=== PATIENT | male | born 1955 | race Caucasian/White ===

== ENCOUNTER 2022-12-30 11:54 | Observation (INO) | payer MEDICARE, OTHER ==
[~2022-12-30] VITALS: Ht 177.8 cm; Wt 112.7 kg
[~2022-12-30 11:54] MED LIST: ASPI81CH PO; ATOR40TA PO; BUPR150ER PO; ENDOCET 7.5-321 EACH PO; GLIP5 PO; GLUCOSE4 GM PO; HYDR1TAB94 PO; INSDET100; JARDIANCE25 MG PO; LEVSOD150 PO; LOSARTAN POTASS25 M2 PO; METF500 PO; Mupirocin22 GM; NEURONTIN300 MG PO; PARO20 PO; PRAZ2 PO; Refresh Plus1 EACH OP; SYNTHROID150 MC1 PO; TAMSULOSIN HCL0.4 M1 PO; TANZEUM30 MG/0.5; TRAZ100 PO
[2022-12-30 12:31] LABS: Base Excess Venous 2.1 mmol/L; PCO2 Venous 50.1 mmHg (38-42); pH Blood Venous 7.35 (7.34-7.37)
[2022-12-30] MEDS ORDERED: TAMS.4ER PO (12:35)
[2022-12-30 12:36] LABS: BASOPHILS ABSOLUTE AUTO 0.06 K/mm3 (0.00-0.23); BASOPHILS PERCENT AUTO 1 % (0-2); EOSINOPHILS ABSOLUTE AUTO 0.23 K/mm3 (0.00-0.68); EOSINOPHILS PERCENT AUTO 5 % (0-6); Hematocrit 44.1 % (37.0-53.0); Hemoglobin 14.9 g/dL (13.5-17.5); IMMATURE GRAN ABSOLUTE AUTO 0.01 K/mm3 (0.00-0.10); IMMATURE GRAN PERCENT AUTO 0 % (0-1); LYMPHOCYTES ABSOLUTE AUTO 1.68 K/mm3 (0.84-5.20); LYMPHOCYTES PERCENT AUTO 37 % (21-46); MONOCYTES ABSOLUTE AUTO 0.27 K/mm3 (0.16-1.47); MONOCYTES PERCENT AUTO 6 % (4-13); Mean Corpuscular HGB 29.3 pg (26.0-34.0); Mean Corpuscular HGB Conc 33.8 g/dL (31.5-36.5); Mean Corpuscular Volume 87 fL (80-100); Mean Platelet Volume 10.7 fL (9.1-12.4); NEUTROPHILS ABSOLUTE AUTO 2.34 K/mm3 (1.96-9.15); NEUTROPHILS PERCENT AUTO 51 % (41-73); Platelet Count 137 K/mm3 (150-400); RDW Coefficient Variation 14.6 % (11.7-14.2); RDW Standard Deviation 46.5 fL (35.1-46.3); Red Blood Cell Count 5.08 M/mm3 (4.30-5.90); White Blood Cell Count 4.59 K/mm3 (4.00-11.30)
[2022-12-30] MEDS ORDERED: NEURONTIN300 MG PO (12:36)
[2022-12-30] MEDS ORDERED: Norco 5-325 Ta1 EACH PO (12:36)
[2022-12-30] MEDS ORDERED: JARDIANCE25 MG PO (12:36)
[2022-12-30] MEDS ORDERED: DIAZEPAM5 M2 PO (12:36)
[2022-12-30] MEDS ORDERED: ATOR10 PO (12:37)
[2022-12-30] MEDS ORDERED: EUTHYROX175 MCG PO (12:38)
[2022-12-30] MEDS ORDERED: METF500 PO (12:38)
[2022-12-30] MEDS ORDERED: BENADRYL25 MG PO (12:38)
[2022-12-30] MEDS ORDERED: ALOGLIPTIN25 M1 (12:38)
[2022-12-30] MEDS ORDERED: Amitriptyline H10 MG PO (12:39)
[2022-12-30] MEDS ORDERED: NOVOLOG100 UNIT/2 (12:40)
[2022-12-30 12:53] LABS: Magnesium, Blood 2.1 mg/dL (1.6-2.4)
[2022-12-30 12:54] LABS: Bilirubin, Total 0.7 mg/dL (0.1-1.0); Bun/Creatinine Ratio 9.7 (12.0-20.0); Calcium, Blood 9.3 mg/dL (8.5-10.1); Creatinine, Blood 1.24 mg/dL (0.60-1.20); Globulin, Blood 4.1 g/dL (2.2-4.0); Total Protein, Blood 8.1 g/dL (6.4-8.2)
[2022-12-30 17:54] VITALS: BP 122/74
[2022-12-30 20:55] VITALS: BP 119/75
[2022-12-31 05:10] LABS: BASOPHILS ABSOLUTE AUTO 0.08 K/mm3 (0.00-0.23); BASOPHILS PERCENT AUTO 1 % (0-2); EOSINOPHILS ABSOLUTE AUTO 0.27 K/mm3 (0.00-0.68); EOSINOPHILS PERCENT AUTO 5 % (0-6); Hematocrit 41.1 % (37.0-53.0); Hemoglobin 14.2 g/dL (13.5-17.5); IMMATURE GRAN ABSOLUTE AUTO 0.01 K/mm3 (0.00-0.10); IMMATURE GRAN PERCENT AUTO 0 % (0-1); LYMPHOCYTES ABSOLUTE AUTO 1.81 K/mm3 (0.84-5.20); LYMPHOCYTES PERCENT AUTO 33 % (21-46); MONOCYTES ABSOLUTE AUTO 0.29 K/mm3 (0.16-1.47); MONOCYTES PERCENT AUTO 5 % (4-13); Mean Corpuscular HGB 29.6 pg (26.0-34.0); Mean Corpuscular HGB Conc 34.5 g/dL (31.5-36.5); Mean Corpuscular Volume 86 fL (80-100); Mean Platelet Volume 10.7 fL (9.1-12.4); NEUTROPHILS ABSOLUTE AUTO 3.07 K/mm3 (1.96-9.15); NEUTROPHILS PERCENT AUTO 56 % (41-73); Platelet Count 164 K/mm3 (150-400); RDW Coefficient Variation 14.6 % (11.7-14.2); RDW Standard Deviation 45.1 fL (35.1-46.3); White Blood Cell Count 5.53 K/mm3 (4.00-11.30)
[2022-12-31 05:57] LABS: Bun/Creatinine Ratio 12.6 (12.0-20.0); Calcium, Blood 9.7 mg/dL (8.5-10.1); Creatinine, Blood 1.11 mg/dL (0.60-1.20); Potassium, Blood 3.1 mmol/L (3.5-5.5)
[2022-12-31 06:05] VITALS: BP 100/69
[2022-12-31 07:32] VITALS: BP 105/67
[2022-12-31 07:56] LABS: Free Thyroxine 0.31 ng/dL (0.70-1.60); Triiodothyronine, Free 0.73 pg/mL (2.18-3.98)
[2022-12-31 15:37] VITALS: BP 104/65
[2022-12-31] MEDS ORDERED: JARDIANCE25 MG PO (17:02)
[2022-12-31] MEDS ORDERED: FURO20 PO (17:03)
[2022-12-31] MEDS ORDERED: POTCHL20ER PO (17:03)
[2022-12-31] MEDS ORDERED: HUMULIN N100 UNIT/6 SC (17:07)
== END 2022-12-31 18:15 | disposition home or self-care (01) ==
LOC: ER 11:54 → MEDS 11:55
PROVIDERS: Student in an Organized Health Care Education/Training Program; ADMIT Internal Medicine
DX: J96.01 Acute respiratory failure with hypoxia (principal); I51.89 Other ill-defined heart diseases; E11.65 Type 2 diabetes mellitus with hyperglycemia; I10 Essential (primary) hypertension; I25.10 Atherosclerotic heart disease of native coronary artery without angina pectoris; E87.1 Hypo-osmolality and hyponatremia; N40.0 Benign prostatic hyperplasia without lower urinary tract symptoms; E03.9 Hypothyroidism, unspecified; E11.40 Type 2 diabetes mellitus with diabetic neuropathy, unspecified; E66.9 Obesity, unspecified; Z79.4 Long term (current) use of insulin; Z79.890 Hormone replacement therapy; Z79.899 Other long term (current) drug therapy
CPT/HCPCS: 36415; 71260; 80048; 80053; 82803; 82947; 83735; 83880; 84145; 84439; 84443; 84481; 84484; 85025; 93005; 93010; 93306; 94760; 94761; 96372; 96376; 99285-25; A9270; G0378; J1650; J1815; J1940; J7030; Q9967

== ENCOUNTER 2023-10-31 17:23 | Emergency (ER) | payer MEDICARE, OTHER ==
[~2023-10-31] VITALS: Ht 177.8 cm; Wt 104.3 kg
[~2023-10-31 17:23] MED LIST changes: +ALOGLIPTIN25 M1; +ATOR10 PO; +Amitriptyline H10 MG PO; +BENADRYL25 MG PO; +DIAZEPAM5 M2 PO; +EUTHYROX175 MCG PO; +FURO20 PO; +HUMULIN N100 UNIT/6 SC; +NOVOLOG100 UNIT/2; +Norco 5-325 Ta1 EACH PO; +POTCHL20ER PO; +TAMS.4ER PO
[2023-10-31 17:30] VITALS: BP 144/75
[2023-10-31 17:57] LABS: BASOPHILS ABSOLUTE AUTO 0.06 K/mm3 (0.00-0.23); BASOPHILS PERCENT AUTO 1 % (0-2); EOSINOPHILS ABSOLUTE AUTO 0.17 K/mm3 (0.00-0.68); EOSINOPHILS PERCENT AUTO 3 % (0-6); Hematocrit 42.7 % (37.0-53.0); Hemoglobin 13.7 g/dL (13.5-17.5); IMMATURE GRAN ABSOLUTE AUTO 0.01 K/mm3 (0.00-0.10); IMMATURE GRAN PERCENT AUTO 0 % (0-1); LYMPHOCYTES ABSOLUTE AUTO 2.17 K/mm3 (0.84-5.20); LYMPHOCYTES PERCENT AUTO 33 % (21-46); MONOCYTES ABSOLUTE AUTO 0.44 K/mm3 (0.16-1.47); MONOCYTES PERCENT AUTO 7 % (4-13); Mean Corpuscular HGB 29.5 pg (26.0-34.0); Mean Corpuscular HGB Conc 32.1 g/dL (31.5-36.5); Mean Corpuscular Volume 92 fL (80-100); Mean Platelet Volume 9.6 fL (9.1-12.4); NEUTROPHILS ABSOLUTE AUTO 3.79 K/mm3 (1.96-9.15); NEUTROPHILS PERCENT AUTO 57 % (41-73); Platelet Count 204 K/mm3 (150-400); RDW Coefficient Variation 13.6 % (11.7-14.2); RDW Standard Deviation 45.9 fL (35.1-46.3); Red Blood Cell Count 4.65 M/mm3 (4.30-5.90); White Blood Cell Count 6.64 K/mm3 (4.00-11.30)
[2023-10-31 18:09] LABS: Albumin, Blood 3.7 g/dL (3.4-5.0); Bilirubin, Total 0.6 mg/dL (0.1-1.0); Bun/Creatinine Ratio 12.9 (12.0-20.0); Calcium, Blood 8.9 mg/dL (8.5-10.1); Creatinine, Blood 0.7 mg/dL (0.60-1.20); Globulin, Blood 3.6 g/dL (2.2-4.0); Potassium, Blood 3.5 mmol/L (3.5-5.5); Total Protein, Blood 7.3 g/dL (6.4-8.2)
[2023-10-31] MEDS ORDERED: Furosemide 10 MG/ML 4ML Vial IV ONE (18:50)
[2023-10-31] MEDS ORDERED: Potassium Chloride 10 Meq Tablet SA PO ONE (18:50)
[2023-10-31 19:16] LABS: Bicarbonate Venous 27.5 mmol/L (24.0-30.0); PCO2 Venous 47.5 mmHg (38-42); pH Blood Venous 7.41 (7.34-7.37)
[2023-10-31] MEDS ORDERED: FURO20 PO ×2 (19:34→19:37)
== END 2023-10-31 20:05 | disposition home or self-care (01) ==
LOC: ER 17:23
PROVIDERS: Student in an Organized Health Care Education/Training Program
DX: I11.0 Hypertensive heart disease with heart failure (principal); I50.9 Heart failure, unspecified; J81.1 Chronic pulmonary edema; E11.9 Type 2 diabetes mellitus without complications; E03.9 Hypothyroidism, unspecified; I25.10 Atherosclerotic heart disease of native coronary artery without angina pectoris; Z99.81 Dependence on supplemental oxygen; Z91.030 Bee allergy status; Z79.84 Long term (current) use of oral hypoglycemic drugs; Z79.890 Hormone replacement therapy; Z79.4 Long term (current) use of insulin; Z79.899 Other long term (current) drug therapy; Z87.891 Personal history of nicotine dependence
CPT/HCPCS: 71046; 80053; 82803; 83735; 83880; 84484; 85025; 93005; 93010; 96374; 99285-25; A9270; J1940

== ENCOUNTER 2024-10-01 16:28 | Emergency (ER) | payer MEDICARE, OTHER ==
[~2024-10-01] VITALS: Ht 177.8 cm; Wt 99.3 kg
[2024-10-01 17:55] LABS: BASOPHILS ABSOLUTE AUTO 0.06 K/mm3 (0.00-0.23); BASOPHILS PERCENT AUTO 1 % (0-2); EOSINOPHILS ABSOLUTE AUTO 0.16 K/mm3 (0.00-0.68); EOSINOPHILS PERCENT AUTO 3 % (0-6); Hematocrit 39.3 % (37.0-53.0); Hemoglobin 12.8 g/dL (13.5-17.5); IMMATURE GRAN ABSOLUTE AUTO 0.03 K/mm3 (0.00-0.10); IMMATURE GRAN PERCENT AUTO 1 % (0-1); LYMPHOCYTES ABSOLUTE AUTO 1.31 K/mm3 (0.84-5.20); LYMPHOCYTES PERCENT AUTO 21 % (21-46); MONOCYTES ABSOLUTE AUTO 0.36 K/mm3 (0.16-1.47); MONOCYTES PERCENT AUTO 6 % (4-13); Mean Corpuscular HGB 28.8 pg (26.0-34.0); Mean Corpuscular HGB Conc 32.6 g/dL (31.5-36.5); Mean Corpuscular Volume 88 fL (80-100); Mean Platelet Volume 10.2 fL (9.1-12.4); NEUTROPHILS ABSOLUTE AUTO 4.43 K/mm3 (1.96-9.15); NEUTROPHILS PERCENT AUTO 70 % (41-73); Platelet Count 205 K/mm3 (150-400); RDW Coefficient Variation 18.7 % (11.7-14.2); RDW Standard Deviation 59.9 fL (35.1-46.3); Red Blood Cell Count 4.45 M/mm3 (4.30-5.90); White Blood Cell Count 6.35 K/mm3 (4.00-11.30)
[2024-10-01 18:17] LABS: Albumin, Blood 3.2 g/dL (3.4-5.0); Albumin/Globulin Ratio 0.9 (0.8-1.8); Calcium, Blood 8.5 mg/dL (8.5-10.1); Creatinine, Blood 0.87 mg/dL (0.60-1.20); Globulin, Blood 3.7 g/dL (2.2-4.0); Total Protein, Blood 6.9 g/dL (6.4-8.2)
[2024-10-01 18:45] VITALS: BP 117/75
[2024-10-01] MEDS ORDERED: ALBU90OI INH (18:46)
[2024-10-01] MEDS ORDERED: ALOGLIPTIN25 M1 PO (18:46)
[2024-10-01] MEDS ORDERED: DICLOFENAC SOD100 GM TOP (18:47)
[2024-10-01] MEDS ORDERED: Vitamin D1000 UNI1 PO (18:47)
[2024-10-01] MEDS ORDERED: GABA300 PO (18:48)
[2024-10-01] MEDS ORDERED: Norco 5-325 Ta1 EACH PO (18:48)
[2024-10-01] MEDS ORDERED: ESCI10 PO (18:48)
[2024-10-01] MEDS ORDERED: BASAGLAR K100 UNIT/1 SC (18:48)
[2024-10-01] MEDS ORDERED: TAMS.4ER PO (18:49)
== END 2024-10-01 19:26 | disposition home or self-care (01) ==
LOC: ER 16:28
PROVIDERS: Student in an Organized Health Care Education/Training Program
DX: R55 Syncope and collapse (principal); M54.2 Cervicalgia; W18.30XA Fall on same level, unspecified, initial encounter; E11.9 Type 2 diabetes mellitus without complications; I10 Essential (primary) hypertension; E03.9 Hypothyroidism, unspecified; I25.10 Atherosclerotic heart disease of native coronary artery without angina pectoris; Z91.030 Bee allergy status; Z79.899 Other long term (current) drug therapy; Z79.84 Long term (current) use of oral hypoglycemic drugs; Z79.4 Long term (current) use of insulin; Z79.890 Hormone replacement therapy
CPT/HCPCS: 70450; 71045; 72125; 72128; 80053; 83880; 84484; 85025; 93005; 93010; 99285-25

== ENCOUNTER 2025-04-07 00:13 | Day surgery (SDC) | payer MEDICARE, OTHER ==
[~2025-04-07 00:13] MED LIST changes: +ALBU90OI INH; +ALOGLIPTIN25 M1 PO; +BASAGLAR K100 UNIT/1 SC; +DICLOFENAC SOD100 GM TOP; +ESCI10 PO; +GABA300 PO; +Vitamin D1000 UNI1 PO
[2025-04-07] MEDS ORDERED: Sod Ferric Gluc Complx/Sucrose 125 MG in NS 100 ML IV SCH (01:00)
[2025-04-07 10:07] VITALS: BP 103/68
[2025-04-07] MEDS ORDERED: TORSE20 PO (10:23)
== END 2025-04-07 11:13 | disposition home or self-care (01) ==
LOC: ATC 00:13
DX: D50.9 Iron deficiency anemia, unspecified (principal); I27.21 Secondary pulmonary arterial hypertension; I50.810 Right heart failure, unspecified; I25.10 Atherosclerotic heart disease of native coronary artery without angina pectoris; E11.9 Type 2 diabetes mellitus without complications; E03.9 Hypothyroidism, unspecified; J96.11 Chronic respiratory failure with hypoxia; I11.0 Hypertensive heart disease with heart failure; I50.30 Unspecified diastolic (congestive) heart failure; Z79.4 Long term (current) use of insulin; Z79.82 Long term (current) use of aspirin; Z79.84 Long term (current) use of oral hypoglycemic drugs; Z79.890 Hormone replacement therapy; Z79.899 Other long term (current) drug therapy; Z99.81 Dependence on supplemental oxygen
CPT/HCPCS: 96365; J2916